=== PATIENT | female | born 1985 | race African-American/Black ===

== ENCOUNTER 2019-07-10 13:49 | Emergency (ER) | payer OTHER, SELFPAY ==
--- NOTE | 2019-07-10 14:56 | RAD ---
Left foot:3 views INDICATION:Injury with pain COMPARISON:None FINDINGS: Tarsals appear intact. Metatarsals appear intact. Phalanges appear intact. Tarsal metatarsal joints, MTP joints, and IP joints appear unremarkable. Soft tissues unremarkable. IMPRESSION: No acute finding
== END 2019-07-10 15:23 | disposition home or self-care (01) ==
LOC: SCSER 13:49
DX: S90.212A Contusion of left great toe with damage to nail, initial encounter (principal); L03.032 Cellulitis of left toe; E78.00 Pure hypercholesterolemia, unspecified; D64.9 Anemia, unspecified; G43.909 Migraine, unspecified, not intractable, without status migrainosus; F41.0 Panic disorder [episodic paroxysmal anxiety]; F17.210 Nicotine dependence, cigarettes, uncomplicated; W22.8XXA Striking against or struck by other objects, initial encounter